=== PATIENT | male | born 1960 | race Caucasian/White ===

== ENCOUNTER 2017-03-29 13:27 | Emergency (ER) | payer BC ==
--- NOTE | 2017-03-29 13:31 | PDOC ---
History of Present Illness - General Chief Complaint: Edema Stated Complaint: right leg redness and swelling Time Seen by Provider: 03/29/17 13:28 - History of Present Illness Initial Comments: 03/29/17 13:29 The patient is a year old female, with a significant past medical history of, who presents to the emergency department with The patient denies chest pain, shortness of breath, headache and dizziness. Denies fever, chills, nausea, vomit, diarrhea and constipation. Denies dysuria, frequency, urgency and hematuria. Allergies: Past surgical history: Social history: PMD - Past History - Past Medical History Allergies/Adverse Reactions: Allergies Allergy/AdvReac Type Severity Reaction Status Date / Time No Known Allergies Allergy Verified 02/15/16 09:53 Home Medications: Ambulatory Orders Cyclobenzaprine HCl [Flexeril -] 10 mg PO TID PRN #21 tablet 02/15/16 Fenofibrate [Lofibra] 160 mg PO DAILY 02/15/16 Multivits,Ca,Min/Iron/FA/Lycop [Centrum Men's Tablet] 1 each PO DAILY 02/15/16 Naproxen Sodium 550 mg PO TID PRN #20 tablet 02/15/16 Niacin 500 mg PO DAILY 02/15/16 [place]-3 Acid Ethyl Esters [Lovaza -] 500 mg PO TID 02/15/16 Oxycodone HCl/Acetaminophen [Percocet 5-325 mg Tablet] 1 - 2 tab PO Q6H PRN 11/24 Valsartan 160 mg PO DAILY 02/15/16 Vitamin B Complex [B Complex] 1 each PO DAILY 02/15/16 HTN: Yes Hypercholesterolemia: Yes - Surgical History Abdominal Surgery: No Cholecystectomy: No - Suicide/Smoking/Psychosocial Hx Smoking Status: No Smoking History: Never smoked Number of Cigarettes Smoked Daily: 0 Hx Alcohol Use: No Drug/Substance Use Hx: No Substance Use Type: None Review of Systems - Review of Systems Comments:: 03/29/17 13:29 GENERAL/CONSTITUTIONAL: No fever or chills. No weakness. HEAD, EYES, EARS, NOSE AND THROAT: No change in vision. No ear pain or discharge. No sore throat. CARDIOVASCULAR: No chest pain or shortness of breath RESPIRATORY: No cough, wheezing, or hemoptysis. GASTROINTESTINAL: No nausea, vomiting, diarrhea or constipation. GENITOURINARY: No dysuria, frequency, or change in urination. MUSCULOSKELETAL: No joint or muscle swelling or pain. No neck or back pain. SKIN: No rash NEUROLOGIC: No headache, vertigo, loss of consciousness, or change in strength/ sensation. ENDOCRINE: No increased thirst. No abnormal weight change HEMATOLOGIC/LYMPHATIC: No anemia, easy bleeding, or history of blood clots. ALLERGIC/IMMUNOLOGIC: No hives or skin allergy. *Physical Exam - Physical Exam Comments: 03/29/17 13:29 GENERAL: Awake, alert, and fully oriented, in no acute distress HEAD: No signs of trauma, normocephalic, atraumatic EYES: PERRLA, EOMI, sclera anicteric, conjunctiva clear ENT: Auricles normal inspection, hearing grossly normal, nares patent, oropharynx clear without exudates. Moist mucosa NECK: Normal ROM, supple, no lymphadenopathy, JVD, or masses LUNGS: No distress, speaks full sentences, clear to auscultation bilaterally HEART: Regular rate and rhythm, normal S1 and S2, no murmurs, rubs or gallops, peripheral pulses normal and equal bilaterally. ABDOMEN: Soft, nontender, normoactive bowel sounds. No guarding, no rebound. No masses EXTREMITIES: Normal inspection, Normal range of motion, no edema. No clubbing or cyanosis. NEUROLOGICAL: Cranial nerves II through XII grossly intact. Normal speech, normal gait, no focal sensorimotor deficits SKIN: Warm, Dry, normal turgor, no rashes or lesions noted. *DC/Admit/Observation/Transfer - Discharge Dispostion Condition at time of disposition: Fair
--- NOTE | 2017-03-29 13:52 | PDOC ---
History of Present Illness <Elias Long - Last Filed: 03/29/17 14:28> - General History Source: Patient Exam Limitations: No Limitations - History of Present Illness Initial Comments: 03/29/17 16:58 The patient is a 56 year old male, with a significant past medical history of hypertension and hyperlipidemia, who presents to the emergency department with erythema and discomfort to the right distal anterior cervantes for approximately 1 week. The patient reports the discomfort began approximately 1 week ago s/p doing a lot of walking over the past couple of weeks. Patient reports mild associated erythema and swelling to the right cervantes, but denies any ecchymosis or discharge. He reports the pain is not worse with movement or when standing. Patient reports he is able to ambulate despite the discomfort. He reports some soreness to the area, which is exacerbated with touch. He denies any increased warmth to the right cervantes, calf tenderness, chest pain, shortness of breath, cough, hemoptysis, diaphoresis, or palpitations. He denies any recent fever, chills, or dizziness. He denies any recent trauma to the cervantes or recent travel. Patient reports he is going on a trip the next couple of days, so his suggested he come to the ED to get evaluated. Allergies: NKDA Past Surgical History: None reported. Social History: Non smoker. No ETOH or recreational drug use. 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 PCP: Dr. Carrillo <Sherrell Mccarty - Last Filed: 03/29/17 16:59> - General Chief Complaint: Edema Stated Complaint: right leg redness and swelling Time Seen by Provider: 03/29/17 13:28 Past History - Past Medical History HTN: Yes Hypercholesterolemia: Yes - Surgical History Abdominal Surgery: No Cholecystectomy: No - Suicide/Smoking/Psychosocial Hx Smoking Status: No Smoking History: Never smoked Number of Cigarettes Smoked Daily: 0 Hx Alcohol Use: No Drug/Substance Use Hx: No Substance Use Type: None <Elias Long - Last Filed: 03/29/17 14:28> <Sherrell Mccarty - Last Filed: 03/29/17 16:59> - Past Medical History Allergies/Adverse Reactions: Allergies Allergy/AdvReac Type Severity Reaction Status Date / Time No Known Allergies Allergy Verified 03/29/17 13:48 Home Medications: Ambulatory Orders Multivits,Ca,Min/Iron/FA/Lycop [Centrum Men's Tablet] 1 each PO DAILY 02/15/16 Niacin 500 mg PO DAILY 02/15/16 [place]-3 Acid Ethyl Esters [Lovaza -] 1,000 mg PO QID 02/15/16 Valsartan 160 mg PO DAILY 02/15/16 Aspirin [ASA -] 81 mg PO DAILY 03/29/17 Cholecalciferol (Vitamin D3) [Vitamin D3] 1,000 unit PO DAILY 03/29/17 Review of Systems - Review of Systems Able to Perform ROS?: Yes Comments:: 03/29/17 16:59 CONSTITUTIONAL: No reported: Fever, Chills, Diaphoresis, Generalized Weakness, Malaise, Loss of Appetite CARDIOVASCULAR: No reported: Chest Pain, Syncope, Palpitations, Irregular Heart Rate, Lightheadedness, Peripheral Edema RESPIRATORY: No reported: Cough, Shortness of Breath, SOB with Exertion, Orthopnea, Wheezing , Stridor, Hemoptysis MUSCULOSKELETAL: Reported: Right cervantes discomfort/soreness No reported: Myalgia, Arthralgia, Back pain, Neck Pain SKIN: Reported: Mild erythema and swelling to the right cervantes No reported: Itching, Pallor HEMEATOLOGIC/IMMUNOLOGIC: No reported: Easy Bleeding, Easy Bruising, Lymphadenopathy, Frequent infections NEUROLOGIC: No reported: Headache, Focal Weakness, Paresthesias, <Mccarty,Giomilsy - Last Filed: 03/29/17 16:59> *Physical Exam - Vital Signs Last Vital Signs Temp Pulse Resp BP Pulse Ox 98.4 F 65 18 106/67 96 03/29/17 13:28 03/29/17 13:28 03/29/17 13:28 03/29/17 13:28 03/29/17 13:28 <Mercedes,Elias - Last Filed: 03/29/17 14:28> - Vital Signs Last Vital Signs Temp Pulse Resp BP Pulse Ox 98.4 F 65 18 106/67 96 03/29/17 13:28 03/29/17 13:28 03/29/17 13:28 03/29/17 13:28 03/29/17 13:28 - Physical Exam Comments: 03/29/17 16:59 GENERAL: The patient is awake, alert, and fully oriented, Nontoxic - in no acute distress. HEAD: Normocephalic, atraumatic. EXTREMITIES: Normal range of motion, no edema. neg homans sign, no calf tenderness, small palpable mass approx 2x2cm on the medial aspect of R cervantes approx 2/3 down the leg that is tender to palpation, no significant erythema, induration or warmth. no focal bony tenderness. sensation intact throughout, dp pulses symmetric NEUROLOGICAL: No facial assymetry, Normal speech, moving all 4 extremities spontaneously and symmetrically PSYCH: Normal mood, normal affect. SKIN: Warm, Dry, normal turgor, <Sherrell Mccarty - Last Filed: 03/29/17 16:59> *DC/Admit/Observation/Transfer - Discharge Dispostion Admit: No <Elias Long - Last Filed: 03/29/17 14:28> - Attestations Scribe Attestion: 03/29/17 16:59 Documentation prepared by Sherrell Mccarty, acting as medical physiologist for Elias Long MD. <Sherrell Mccarty - Last Filed: 03/29/17 16:59> Diagnosis at time of Disposition: Leg pain, left - Discharge Dispostion Disposition: HOME Condition at time of disposition: Improved - Referrals Referrals: Karson Carrillo MD [Primary Care Provider] - - Patient Instructions Printed Discharge Instructions: DI for Leg Pain Additional Instructions: Return to the emergency department immediately with ANY new, persistent or worsening symptoms including incrased swelling, calf pain, shortness of breath, cough, chest pain. Rest Use tylenol/motrin for comfort. You MUST call and follow up with your doctor in 4-5 days for further evaluation of your symptoms if it has not resolved. Results were discussed with you. Please make sure your doctor reviews the results of your emergency evaluation. Print Language: PASHTO
[2017-03-29 13:53] VITALS: BP 106/67; PULSE 65; TEMP 98.4; BMI 31.5
== END 2017-03-29 14:40 | disposition home or self-care (01) ==
LOC: SUPCPDRO 13:27 → FER 13:27
DX: M79.605 Pain in left leg (principal); I10 Essential (primary) hypertension; E78.5 Hyperlipidemia, unspecified
CPT/HCPCS: 99281-25

== ENCOUNTER 2019-05-03 15:47 | Emergency (ER) | payer BC, OTHER ==
[2019-05-03 16:04] VITALS: BP 154/87; PULSE 90; TEMP 98.3; BMI 30.1
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
== END 2019-05-03 17:47 | disposition home or self-care (01) ==
LOC: FER 15:47
CPT/HCPCS: 72131-TC; 99282-25

== ENCOUNTER 2020-07-03 13:01 | Emergency (ER) | payer BC ==
[2020-07-03 13:16] VITALS: BMI 30.1
[2020-07-03] MEDS ORDERED: BAMLANIVIMAB 700 MG in SODIUM CHLORIDE 180 ML IVPB ONE (13:28)
[2020-07-03 13:56] LABS: BASO % 0.4 % (0-2.0); EOS % 0.2 % (0-4.5); HEMATOCRIT 45.1 % (35.4-49); HEMOGLOBIN 15.6 GM/dL (11.7-16.9); LYMPH % 22.1 % (8-40); MCH 31.1 pg (25.7-33.7); MCHC 34.7 g/dl (32.0-35.9); MEAN CELL VOLUME 89.5 fl (80-96); MEAN PLT VOLUME 7.8 fl (7.5-11.1); NEUT % 58.3 % (42.8-82.8); PLATELET COUNT 154 K/MM3 (134-434); RBC 5.04 M/mm3 (4.00-5.60); RDW 13.6 % (11.9-15.9); WHITE BLOOD COUNT 3.6 K/mm3 (4.0-10.0)
[2020-07-03 14:24] LABS: POTASSIUM 4.1 mmol/L (3.5-5.1)
[2020-07-03 14:26] LABS: ALBUMIN 4.3 g/dl (3.4-5.0); BLOOD UREA NITROGEN 18.6 mg/dL (7-18); CALCIUM 9.1 mg/dL (8.5-10.1)
[2020-07-03 14:29] LABS: CREATININE 0.9 mg/dL (0.55-1.3)
[2020-07-03 14:31] LABS: BILIRUBIN,TOTAL 0.5 mg/dL (0.2-1); TOT PROT 7.2 g/dl (6.4-8.2)
[2020-07-03] MEDS ORDERED: ACETAMINOPHEN 500 MG TABLET (FP) PO ONE (14:55)
[2020-07-03 16:54] VITALS: BP 120/74; PULSE 73; TEMP 98.3
== END 2020-07-03 17:00 | disposition home or self-care (01) ==
LOC: JCOVINFU 13:01 → JER 13:01 → JCOVINFU 17:00
DX: U07.1 COVID-19 (principal); R51.9 Headache, unspecified; R05 Cough
CPT/HCPCS: 36415; 80053; 85025; 99284-25; M0239; Q0239

== ENCOUNTER 2022-12-13 14:40 | Emergency (ER) | payer BC ==
[2022-12-13 14:54] VITALS: BP 138/81; PULSE 73; RESP 18; TEMP 99.1; BMI 30.1
== END 2022-12-13 15:52 | disposition home or self-care (01) ==
LOC: FER 14:40
PROC: 0H9QXZZ Drainage of Finger Nail, External Approach (ICD-10-PCS; principal; 2022-12-13)
DX: M79.644 Pain in right finger(s) (principal); L03.011 Cellulitis of right finger
CPT/HCPCS: 99282-25

== ENCOUNTER 2023-10-23 04:41 | Day surgery (SDC) | payer BC ==
[2023-10-17 10:56] VITALS: BMI 32.0
[2023-10-23 10:15] VITALS: TEMP 97.3
[2023-10-23 10:50] VITALS: RESP 18
[2023-10-23 10:51] VITALS: BP 118/73; PULSE 58
== END 2023-10-23 10:50 | disposition home or self-care (01) ==
LOC: JASU-ENDO 04:41
PROVIDERS: ATTEND Internal Medicine Gastroenterology
PROC: 0DBN8ZX Excision of Sigmoid Colon, Via Natural or Artificial Opening Endoscopic, Diagnostic (ICD-10-PCS; principal; 2023-10-23 09:00)
DX: Z12.11 Encounter for screening for malignant neoplasm of colon (principal); D12.5 Benign neoplasm of sigmoid colon; K57.30 Diverticulosis of large intestine without perforation or abscess without bleeding; K64.8 Other hemorrhoids
CPT/HCPCS: 88305-TC